=== PATIENT | male | born 1965 | race Caucasian/White ===

== ENCOUNTER 2023-01-12 12:55 | Emergency (ER) | payer OTHER ==
[~2023-01-12] VITALS: Ht 188 cm; Wt 102.5 kg
--- NOTE | 2023-01-12 13:48 | NUR ---
CHEST X-RAY: Having chest x-ray at the time of this report.
--- NOTE | 2023-01-12 13:48 | NUR ---
WOUND SWAB: 1) Taken and sent to lab. 2) Awaiting lab results
[2023-01-12 14:01] LABS: HEMATOCRIT 34.8 % (36.7-47.1); MEAN CORPUSCULAR HEMOGLOBIN 26.3 uug (23.8-33.4); MEAN CORPUSCULAR VOLUME 80.6 fL (73.0-96.2); PLATELET COUNT (AUTO) 656 K/uL (152-348)
[2023-01-12 14:41] LABS: CREATININE 0.9 mg/dL (0.6-1.3); POTASSIUM 5.3 mmol/L (3.5-5.1)
[2023-01-12] MEDS ORDERED: CEFEPIME HCL 2 G in IV DEXTROSE 5% 100 ML IV ONE (14:45)
[2023-01-12 14:46] LABS: BILIRUBIN,TOTAL 0.2 mg/dL (0.2-1.0); TOTAL PROTEIN, SERUM 8.5 g/dL (6.4-8.2)
[2023-01-12] MEDS ORDERED: CEFEPIME HCL 1 G VIAL ONE (15:02)
--- NOTE | 2023-01-12 15:31 | NUR ---
[facility] - spoke to Petrona requested: 1) diagnosis and Covid 2) Clinical and covid test should be Faxed to #:[phone]
[2023-01-12 16:40] VITALS: BP 128/70
--- NOTE | 2023-01-12 16:50 | NUR ---
DISCHARGE: 1) Patient refused treatment: a) Doesn'y want to be transferred to another hospital because they will amputate his leg below knew. b) Patient was very tearful. c) Left against medical advise d) explained to patient the risk of levaing with an infected wound. 2) Left he unit - friend picked him up.
== END 2023-01-12 16:53 | disposition left against medical advice (07) ==
LOC: ER 12:55
DX: L03.116 Cellulitis of left lower limb (principal); E11.9 Type 2 diabetes mellitus without complications; Z20.822 Contact with and (suspected) exposure to COVID-19
CPT/HCPCS: 99284; 96365; 87426; 80053; 85025; 85651; 86140; 36415; 73630; 83605; J0692 ×2; A4663